=== PATIENT | male | born 1960 | race Caucasian/White ===

== ENCOUNTER → 2017-06-08 | Outpatient (CLI) | payer OTHER ==
[~2017-06-08] MED LIST: /ESOM40CA OR; ASPI81TA45 OR
[2017-06-08 10:11] LABS: ALBUMIN 3.9 GM/DL (3.2-5.2); ALKALINE PHOSPHATASE 53 U/L (45-117); ALT/SGPT 42 U/L (12-78); ANION GAP 7 MEQ/L (8-16); AST/SGOT 14 U/L (15-37); BILIRUBIN,TOTAL 0.5 MG/DL (0.2-1.0); BLOOD UREA NITROGEN 22 MG/DL (7-18); CALCIUM LEVEL 8.9 MG/DL (8.5-10.1); CARBON DIOXIDE LEVEL 26 MEQ/L (21-32); CHLORIDE LEVEL 109 MEQ/L (98-107); CHOLESTEROL LEVEL 216 MG/DL (<200); CREATININE FOR GFR 0.94 MG/DL (0.70-1.30); GLOMERULAR FILTRATION RATE > 60.0 (>56); GLUCOSE, FASTING 131 MG/DL (70-105); POTASSIUM SERUM 4.4 MEQ/L (3.5-5.1); SODIUM LEVEL 142 MEQ/L (136-145); TOTAL PROTEIN 6.9 GM/DL (6.4-8.2); TRIGLYCERIDES LEVEL 144 MG/DL (<150)
== END ==
LOC: M LAB 08:26
PROVIDERS: ATTEND Emergency Medicine
DX: I10 Essential (primary) hypertension (principal); E78.2 Mixed hyperlipidemia; R73.01 Impaired fasting glucose

== ENCOUNTER → 2018-01-18 | Outpatient (CLI) | payer OTHER ==
[2018-01-18 13:14] LABS: ALBUMIN 3.9 GM/DL (3.2-5.2); ALKALINE PHOSPHATASE 55 U/L (45-117); ALT/SGPT 47 U/L (12-78); ANION GAP 7 MEQ/L (8-16); AST/SGOT 17 U/L (7-37); BILIRUBIN,TOTAL 0.5 MG/DL (0.2-1.0); BLOOD UREA NITROGEN 20 MG/DL (7-18); CARBON DIOXIDE LEVEL 27 MEQ/L (21-32); CHLORIDE LEVEL 108 MEQ/L (98-107); CHOLESTEROL LEVEL 243 MG/DL (<200); CHOLESTEROL RISK RATIO 4.764 (<5); CREATININE FOR GFR 0.91 MG/DL (0.70-1.30); GLOMERULAR FILTRATION RATE > 60.0 (>56); GLUCOSE, FASTING 131 MG/DL (70-100); HDL CHOLESTEROL 51 MG/DL (>40); LDL CHOLESTEROL 166.8 MG/DL (<100); NON-HDL-C 192 MG/DL; POTASSIUM SERUM 4.4 MEQ/L (3.5-5.1); SODIUM LEVEL 142 MEQ/L (136-145); TOTAL PROTEIN 6.9 GM/DL (6.4-8.2); TRIGLYCERIDES LEVEL 126 MG/DL (<150)
[2018-01-18 13:26] LABS: ESTIMATED AVERAGE GLUCOSE 154 MG/DL (60-110)
== END ==
LOC: M ADAMS 08:51
DX: I10 Essential (primary) hypertension (principal); E78.2 Mixed hyperlipidemia; R73.01 Impaired fasting glucose
CPT/HCPCS: 80053

== ENCOUNTER → 2018-06-09 | Outpatient (CLI) | payer OTHER ==
[2018-06-09 12:37] LABS: ALBUMIN 3.7 GM/DL (3.2-5.2); ALBUMIN/GLOBULIN RATIO 1.16 (1.00-1.93); ALKALINE PHOSPHATASE 57 U/L (45-117); ALT/SGPT 43 U/L (12-78); ANION GAP 6 MEQ/L (8-16); AST/SGOT 20 U/L (7-37); BILIRUBIN,TOTAL 0.7 MG/DL (0.2-1.0); BLOOD UREA NITROGEN 22 MG/DL (7-18); CARBON DIOXIDE LEVEL 29 MEQ/L (21-32); CHLORIDE LEVEL 107 MEQ/L (98-107); CHOLESTEROL LEVEL 219 MG/DL (<200); CHOLESTEROL RISK RATIO 4.211 (<5); CREATININE FOR GFR 0.97 MG/DL (0.70-1.30); GLOMERULAR FILTRATION RATE > 60.0 (>56); GLUCOSE, FASTING 130 MG/DL (70-100); HDL CHOLESTEROL 52 MG/DL (>40); LDL CHOLESTEROL 138.2 MG/DL (<100); NON-HDL-C 167 MG/DL; POTASSIUM SERUM 4.5 MEQ/L (3.5-5.1); SODIUM LEVEL 142 MEQ/L (136-145); TOTAL PROTEIN 6.9 GM/DL (6.4-8.2); TRIGLYCERIDES LEVEL 144 MG/DL (<150)
[2018-06-09 12:42] LABS: ESTIMATED AVERAGE GLUCOSE 128 MG/DL (60-110); HEMOGLOBIN A1c 6.1 %
== END ==
LOC: M ADAMS 08:16
DX: I10 Essential (primary) hypertension (principal); E78.2 Mixed hyperlipidemia; R73.01 Impaired fasting glucose
CPT/HCPCS: 80053

== ENCOUNTER → 2018-12-21 | Outpatient (CLI) | payer OTHER ==
[2018-12-21 13:00] LABS: ALT/SGPT 43 U/L (12-78); BILIRUBIN,TOTAL 0.8 MG/DL (0.2-1.0); BLOOD UREA NITROGEN 18 MG/DL (7-18); CALCIUM LEVEL 8.8 MG/DL (8.8-10.2); CARBON DIOXIDE LEVEL 26 MEQ/L (21-32); CHLORIDE LEVEL 106 MEQ/L (98-107); CHOLESTEROL LEVEL 131 MG/DL (<200); CHOLESTEROL RISK RATIO 2.977 (<5); CREATININE FOR GFR 0.88 MG/DL (0.70-1.30); GLOMERULAR FILTRATION RATE > 60.0 (>49); GLUCOSE, FASTING 124 MG/DL (70-100); HDL CHOLESTEROL 44 MG/DL (>40); LDL CHOLESTEROL 70 MG/DL (<100); NON-HDL-C 87 MG/DL; POTASSIUM SERUM 4.3 MEQ/L (3.5-5.1); SODIUM LEVEL 139 MEQ/L (136-145); TOTAL PROTEIN 6.7 GM/DL (6.4-8.2); TRIGLYCERIDES LEVEL 84 MG/DL (<150)
[2018-12-21 13:55] LABS: HEMOGLOBIN A1c 7.1 %
== END ==
LOC: M LABDRWAD 09:10
PROVIDERS: ATTEND Physician Assistant
DX: E78.2 Mixed hyperlipidemia (principal); R73.01 Impaired fasting glucose; I10 Essential (primary) hypertension

== ENCOUNTER 2019-04-09 08:21 | Inpatient (IN) | payer OTHER ==
[~2019-04-09] VITALS: Ht 172.7 cm; Wt 112.0 kg
[~2019-04-09 08:21] MED LIST changes: -/ESOM40CA OR; +NEXI1CAP3 OR
[2019-04-09] MEDS ORDERED: ESOM40CA35 PO (08:33)
[2019-04-09] MEDS ORDERED: ATOR40TA75 PO (08:33)
[2019-04-09] MEDS ORDERED: AMLO10TA5 PO (08:33)
[2019-04-09] MEDS ORDERED: NS 1,000 ML IV SCH (09:00)
[2019-04-09 09:22] LABS: BASO % 0.5 % (0.0-1.0); EOS # 0.1 10^3/uL (0.0-0.50); EOS % 1.5 % (0.0-3.0); HEMATOCRIT 48.6 % (42.0-52.0); HEMOGLOBIN 16.5 g/dl (13.5-17.5); LYMPH # 2.1 10^3/uL (1.5-4.5); LYMPH % 23.4 % (24.0-44.0); MEAN CORPUSCULAR HEMOGLOBIN 30.3 pg (27.0-33.0); MEAN CORPUSCULAR VOLUME 89.3 fl (80.0-96.0); MONO # 0.6 10^3/uL (0.0-0.8); MONO % 7.1 % (0.0-5.0); NEUTROPHILS % 67.4 % (36.0-66.0); PLATELET COUNT, AUTOMATED 216 10^3/uL (150-450); RED BLOOD COUNT 5.44 10^6/uL (4.30-6.10); WHITE BLOOD COUNT 8.8 10^3/uL (4.0-10.0)
[2019-04-09 09:37] LABS: INR 0.9; PROTHROMBIN TIME 12.2 SECONDS (12.1-14.4)
[2019-04-09 09:38] LABS: PARTIAL THROMBOPLASTIN TIME 31.7 SECONDS (25.4-37.6)
[2019-04-09 09:57] LABS: ALBUMIN 3.5 GM/DL (3.2-5.2); ALT/SGPT 41 U/L (12-78); BILIRUBIN,DIRECT < 0.1 MG/DL (0.0-0.2); BILIRUBIN,TOTAL 0.4 MG/DL (0.2-1.0); BLOOD UREA NITROGEN 17 MG/DL (7-18); CALCIUM LEVEL 8.7 MG/DL (8.8-10.2); CARBON DIOXIDE LEVEL 27 MEQ/L (21-32); CHLORIDE LEVEL 107 MEQ/L (98-107); CREATININE FOR GFR 0.91 MG/DL (0.70-1.30); GLOMERULAR FILTRATION RATE > 60.0 (>49); GLUCOSE, FASTING 156 MG/DL (70-100); LIPASE 143 U/L (73-393); POTASSIUM SERUM 5.1 MEQ/L (3.5-5.1); SODIUM LEVEL 140 MEQ/L (136-145); TOTAL PROTEIN 6.9 GM/DL (6.4-8.2)
[2019-04-09] MEDS: GASTROGRAFIN SOLUTION 30ML PO SCH ×2 (11:18→11:47)
[2019-04-09] MEDS ORDERED: ISOVUE-370 76% 100ML VIAL (Q9967) As Ordered ONE (12:48)
[2019-04-09] MEDS ORDERED: ECOT81TA5 PO (13:49)
[2019-04-09] MEDS ORDERED: CIPROFLOXACIN 400 MG in APPROPRIATE DILUENT 1 EA IV ONE (14:00)
[2019-04-09] MEDS ORDERED: metroNIDAZOLE 500 MG in APPROPRIATE DILUENT 1 EA IV ONE (14:00)
--- NOTE | 2019-04-09 14:18 | REP ---
CT ABDOMEN/PELVIS WITH ORAL AND IV CONTRAST: Visualized lung bases demonstrate no infiltrate. The liver demonstrates diffuse fatty infiltration. Spleen, adrenals, pancreas, and kidneys are unremarkable. There is atherosclerotic calcification of the abdominal aorta without aneurysm. There is no adenopathy. No free fluid or fluid collection is seen. There is sigmoid diverticulosis with segmental thickening of the sigmoid colon and the surrounding streaky inflammation in the fat. There are also tiny foci of air adjacent to this portion of the sigmoid colon. Findings are consistent with sigmoid diverticulitis. Urinary bladder is mildly distended and grossly unremarkable. There are degenerative changes of the spine. IMPRESSION: Findings compatible with sigmoid diverticulitis with segmental thickening of the sigmoid colon, with multiple diverticula in the sigmoid. Streaky inflammatory change and tiny foci of free air seen in the pericolonic fat. Dr. Taylor was informed of these findings at the time of the exam, 1:20 p.m., 04/09/2019. Electronically Signed by Chace Cortez MD 04/10/2019 12:36 P
[2019-04-09] MEDS ORDERED: ACETAMINOPHEN TAB 650MG DOSE (2X325MG) PO PRN (15:15)
[2019-04-09] MEDS: NS 1,000 ML IV SCH (15:44)
[2019-04-09] MEDS: PANTOPRAZOLE 40MG TAB (PROTONIX) PO SCH (15:51)
[2019-04-09] MEDS: amLODIPine 10 MG TAB PO SCH (15:51)
--- NOTE | 2019-04-09 15:58 | HPEPDOC ---
General Date of Admission Apr 09, 2019 at 14:48 Date of Service: Apr 09, 2019 Attending Physician: ISA SALDIVAR MD Chief Complaint The patient is a 58-year-old male admitted with a reason for visit of D iverticulitis. Source: Patient, Family, Old records Exam Limitations: No limitations Timing/Duration: 24 hours History of Present Illness Mr. Madsen is a 58-year-old male who presents to [facility]'s Emergency Department with lower abdominal pain. He is accompanied by his , Shari. Patient states he woke up at 3AM this morning with lower abdominal pain. He went to use the facilities and noticed bright red blood in the toilet bowl. There were no clots. It was not black and tarry. He states the abdominal pain is crampy-type pain. His bowel movements have been soft and mucoid. He admits to crampy-type abdominal pain which is associated with the urge to have a bowel movement that was happening every 10-15 minutes. He is not bleeding from anywhere else, including coughing or vomiting up blood, bleeding from his nose, noticing blood in his urine, or easy bruising. He recalls a similar incident about 2 months ago. The symptoms were similar except they were not so severe. He was treated out-patient and his thinks he was Ciprofloxacin. His last colonoscopy was about 10 years ago and patient states that there were only diverticula noted. He is due to for a follow-up colonoscopy. Besides the review of systems listed above, the patient has no other complaints. Emergency Department evaluation reveals somewhat elevated blood pressure; however, he has not taken his blood pressure medication. Labs are unremarkable except for a blood glucose level of 156. Abdomen and pelvis CT is consistent with diverticulitis. Hospitalist service was consulted and patient was admitted under observation for further evaluation and treatment. Home Medications Scheduled Amlodipine Besylate (Amlodipine Besylate) 10 Mg Tablet, 10 MG PO DAILY, (Reported) Aspirin (Ecotrin) 81 Mg Tablet.dr, 81 MG PO DAILY, (Reported) Atorvastatin Calcium (Atorvastatin Calcium) 40 Mg Tablet, 40 MG PO DAILY, (Reported) Esomeprazole Magnesium (Esomeprazole Magnesium Dr) 40 Mg Capsule.dr, 40 MG PO DAILY, (Reported) Allergies Coded Allergies: No Known Allergies (Unverified , 5/7/15) Past Medical History Medical History 1. HTN 2. ARLEEN 3. GERD 4. DLP 5. CLBP 6. ? DM Surgical History 1. Nasopharyngeal biopsy 2. EGD 3. Colonoscopy 4. Right iliac artery endarterectomy Family History Father: , 83, CABG x3, stroke, diverticulitis Mother: , 83, hip fracture, C. diff Siblings - Sister: x1, , 27, MCV - Sister: x1, alive, 58, lupus - Sister: x1, alive, 68, diverticulitis - Brother: x1, alive, 63 Social History * Smoker: current smoker (1/2 PPD, started smoking at 3 years old) Alcohol: occationally (beer, liquor) Drugs: denies Patient lives independently with his , Shari. They have been for 7 years, but have been together for 42 years. They have one adult son who is 38 years old and healthy. Patient mows lawns, has worked for the labor union, and has worked in maintenance at the [employer]. A-FIB/CHADSVASC A-FIB History Current/History of A-Fib/PAF?: No Review of Systems Constitutional: Denies: Chills, Fever, Night Sweats, Weakness, Weight Loss Eyes: Denies: Vision change, Conjunctivae inflammation, Eyelid inflammation ENT: Denies: Head Aches, Dysphagia, Sinus Congestion, Post Nasal Drip, Sore Throat, Epistaxis Skin: Denies: Rash, Lesions Pulmonary: Denies: Dyspnea, Cough, Pleuritic Chest Pain Cardiovascular: Denies: Chest Pain, Palpitations, Orthopnea, Paroxysmal Noc. Dyspnea, Edema, Lt Headedness Gastrointestinal: Reports: Abdominal Pain (lower abdominal pain), Hematochezia, Other Symptoms (mucoid bowel movements); Denies: Nausea, Vomiting, Diarrhea, Constipation, Melena Genitourinary: Reports: Frequency; Denies: Dysuria, Incontinence, Hematuria, Retention Hematologic: Denies: Bruising, Bleeding Excessively Endocrine: Denies: Polydipsia, Polyphagia Musculoskeletal: Reports: Back Pain (chronic); Denies: Neck Pain, Joint Pain, Muscle Pain Neurological: Denies: Weakness, Numbness Physical Examination General Exam: Positive: Alert, Cooperative, No Acute Distress Eye Exam: Positive: PERRLA, Conjunctiva & lids normal, EOMI; Negative: Sclera icteric, Ptosis ENT Exam: Positive: Atraumatic, Mucous membr. moist/pink, Pharynx Normal, Tongue Midline, Nares Patent; Negative: Pharyngeal Edema Neck Exam: Positive: Supple, +2 carotid pulse wo bruit; Negative: JVD, thyromegaly, Lymphadenopathy Chest Exam: Positive: Clear to auscultation, Normal air movement; Negative: Rales, Rhonchi, Wheezing, Diminished Heart Exam: Positive: Rate Normal, Bradycardic, Regular Rhythm, Normal S1, Normal S2; Negative: Gallops, Murmurs, Rubs Telemetry: Positive: Bradycardia Abdomen Exam: Positive: BS Hypoactive, Soft, Tenderness (lower quadrants); Negative: Hepatospenomegaly, Mass, Hernia Extremity Exam: Negative: Clubbing, Cyanosis, Edema, Normal pulses (bradycardia), Tenderness, Swelling Skin Exam: Positive: Other skin issue (chronic venous stasis changes); Negative: Rash, Lesion Neuro Exam: Positive: Normal Speech, Cranial Nerves 3-12 NL Psych Exam: Positive: Oriented x 3 Other physical findings 1. CT abdomen and pelvis with IV and oral contrast - Findings compatible with sigmoid diverticulitis with segmental thickening of the sigmoid colon, with multiple diverticula in the sigmoid. Streaky inflammatory change and tiny foci of free air seen in the pericolonic fat. Vital Signs Vital Signs Date Time Temp Pulse Resp B/P (MAP) Pulse Ox O2 Delivery O2 Flow Rate FiO2 04/09/19 15:01 158/109 (125) 04/09/19 15:00 54 04/09/19 14:45 18 96 Room Air 04/09/19 08:22 97.2 Height (in): 68 Weight (kg): 113.64 BMI (kg): 38.1 Laboratory Data Labs 24H Laboratory Tests 2 04/09/19 09:11: Immature Granulocyte % (Auto) 0.1, White Blood Count 8.8, Red Blood Count 5.44, Hemoglobin 16.5, Hematocrit 48.6, Mean Corpuscular Volume 89.3, Mean Corpuscular Hemoglobin 30.3, Mean Corpuscular Hemoglobin Concent 34.0, Red Cell Distribution Width 12.6, Platelet Count 216, Neutrophils (%) (Auto) 67.4H, Lymphocytes (%) (Auto) 23.4L, Monocytes (%) (Auto) 7.1H, Eosinophils (%) (Auto) 1.5, Basophils (%) (Auto) 0.5, Neutrophils # (Auto) 6.0, Lymphocytes # (Auto) 2.1, Monocytes # (Auto) 0.6, Eosinophils # (Auto) 0.1, Basophils # (Auto) 0.0, Nucleated Red Blood Cells % (auto) 0.0, Prothrombin Time 12.2, Prothromb Time International Ratio 0.90, Activated Partial Thromboplast Time 31.7, Urine Color YELLOW, Urine Appearance CLEAR, Urine pH 6.0, Urine Specific [place] 1.021, Urine Protein NEGATIVE, Urine Glucose (UA) 1+H, Urine Ketones NEGATIVE, Urine Blood NEGATIVE, Urine Nitrite NEGATIVE, Urine Bilirubin NEGATIVE, Urine Urobilinogen 0.2, Urine Leukocyte Esterase NEGATIVE, Urine WBC (Auto) 0, Urine RBC (Auto) 4H, Urine Hyaline Casts (Auto) 0, Urine Bacteria (Auto) NEGATIVE, Urine Squamous Epithelial Cells 0, Urine Mucus (Auto) SMALL, Urine Sperm (Auto) , Anion Gap 6L, Glomerular Filtration Rate > 60.0, Calcium Level 8.7L, Aspartate Amino Transf (AST/SGOT) 29, Alanine Aminotransferase (ALT/SGPT) 41, Alkaline Phosphatase 69, Total Bilirubin 0.4, Direct Bilirubin < 0.1, Total Protein 6.9, Albumin 3.5, Albumin/Globulin Ratio 1.03, Lipase 143 CBC/BMP Laboratory Tests 04/09/19 09:11 Red Blood Count 5.44, Mean Corpuscular Volume 89.3, Mean Corpuscular Hemoglobin 30.3, Mean Corpuscular Hemoglobin Concent 34.0, Red Cell Distribution Width 12.6, Neutrophils (%) (Auto) 67.4 H, Lymphocytes (%) (Auto) 23.4 L, Monocytes (%) (Auto) 7.1 H, Eosinophils (%) (Auto) 1.5, Basophils (%) (Auto) 0.5, Neutrophils # (Auto) 6.0, Lymphocytes # (Auto) 2.1, Monocytes # (Auto) 0.6, Eosinophils # (Auto) 0.1, Basophils # (Auto) 0.0 Plan / VTE VTE Prophylaxis Ordered?: Yes (TEDs) Plan Plan 1. Lower abdominal pain 2/[address] abdomen and pelvis with IV and oral contrast: Findings compatible with sigmoid diverticulitis with segmental thickening of the sigmoid colon, with multiple diverticula in the sigmoid. Streaky inflammatory change and tiny foci of free air seen in the pericolonic fat NPO, NS @ 125 mLs/hr Zosyn 3.375mg IV Q6H Procalcitonin, lactic acid ordered Tylenol 650mg PO Q4HP for pain control 2. Bright red blood per rectum 2/2 #1 vs. hemorrhoids No pain with defecation, so less likely fissure Holding ASA Non-pharmacological DVT prophylaxis, TEDs and ambulation Monitor H&H Q6H for 24 hours, currently stable 3. HTN Continue with Amlodipine 4. Presumed DM Hgb A1c 7.1% Started SSI Q6H, FSBS Q6H, hypoglycemic protocol NPO, NS @ 125 mLs/hr 5. ARLEEN May use own CPAP 6. Tobacco dependence Smoking cessation counseling ordered Patient declined nicotine replacement Disposition Admit: Med/Surg Anticipated hospitalization: Observation IVF: Initiate (NS @ 125 mLs/hr) Diet: Make NPO Activity: Continue Current (activity as tolerated) Therapy: PT Medications: Start Antibiotics (Zosyn 3.375gm IV Q6H) Diagnostics: Check Labs, Repeat Labs in AM Anticipated Discharge: Home Attending Note I have personally interviewed and examined the patient. I have discussed the history, physical examination and the plan of care with the resident. I agree with the resident's documentation above. CRYSTAL HARRIS DO Apr 09, 2019 15:58 ISA SALDIVAR MD Apr 10, 2019 00:00
[2019-04-09] MEDS ORDERED: DEXTROSE 50% 50 ML SYRINGE IV PRN (16:00)
[2019-04-09] MEDS ORDERED: GLUCOSE 4 GM CHEW TABLET PO PRN (16:00)
[2019-04-09] MEDS ORDERED: GLUCAGON FOR INJ 1 MG VIAL (J1610) SC PRN (16:00)
[2019-04-09 17:45] VITALS: BP 145/76
[2019-04-09] MEDS: HumaLOG INSULIN (NovoLOG) PER UNIT SC SCH (18:00)
[2019-04-09 18:17] LABS: HEMATOCRIT 46.9 % (42.0-52.0); HEMOGLOBIN 15.6 g/dl (13.5-17.5)
[2019-04-09 22:00] VITALS: BP 134/63
[2019-04-09] MEDS: PIPERACILLIN/TAZOBACTAM SOD 3.375 GM in D5W MINI-BAG PLUS 50 ML IV SCH (23:56)
[2019-04-10 00:14] LABS: HEMOGLOBIN 15.1 g/dl (13.5-17.5)
[2019-04-10] MEDS: NS 1,000 ML IV SCH ×3 (04:18→23:14)
[2019-04-10] MEDS: HumaLOG INSULIN (NovoLOG) PER UNIT SC SCH ×4 (05:46→17:21)
[2019-04-10] MEDS: PIPERACILLIN/TAZOBACTAM SOD 3.375 GM in D5W MINI-BAG PLUS 50 ML IV SCH ×3 (05:46→18:16)
[2019-04-10 06:00] VITALS: BP 134/63
[2019-04-10 07:08] LABS: HEMOGLOBIN 14.9 g/dl (13.5-17.5); MEAN CORPUSCULAR HEMOGLOBIN 29.7 pg (27.0-33.0); MEAN CORPUSCULAR HGB CONC 33.9 g/dl (32.0-36.5); MEAN CORPUSCULAR VOLUME 87.6 fl (80.0-96.0); PLATELET COUNT, AUTOMATED 199 10^3/uL (150-450); RED BLOOD COUNT 5.02 10^6/uL (4.30-6.10); WHITE BLOOD COUNT 5.9 10^3/uL (4.0-10.0)
[2019-04-10 07:38] LABS: BLOOD UREA NITROGEN 12 MG/DL (7-18); CALCIUM LEVEL 8.2 MG/DL (8.8-10.2); CARBON DIOXIDE LEVEL 24 MEQ/L (21-32); CHLORIDE LEVEL 107 MEQ/L (98-107); CREATININE FOR GFR 0.98 MG/DL (0.70-1.30); GLOMERULAR FILTRATION RATE > 60.0 (>49); GLUCOSE, FASTING 156 MG/DL (70-100); SODIUM LEVEL 138 MEQ/L (136-145)
[2019-04-10] MEDS ORDERED: PANTOPRAZOLE 40MG TAB (PROTONIX) PO SCH (09:00)
[2019-04-10 09:36] VITALS: BP 133/70
[2019-04-10] MEDS: amLODIPine 10 MG TAB PO SCH (10:13)
[2019-04-10] MEDS: PANTOPRAZOLE 40MG TAB (PROTONIX) PO SCH (10:13)
--- NOTE | 2019-04-10 10:21 | IPNPDOC ---
Date Seen The patient was seen on 04/10/19. Progress Note SUBJECTIVE: No new issues overnight. He Denies: Chills, Fever, Night Sweats, Weakness, Weight Loss,Vision change, Conjunctivae inflammation, Eyelid inflammationHead Aches, Dysphagia, Sinus Congestion, Post Nasal Drip, Sore Throat, EpistaxisRash, Lesions Dyspnea, Cough, Pleuritic Chest PainChest Pain, Palpitations, Orthopnea, Paroxysmal Noc. Dyspnea, Edema, Lt HeadednessReports: Abdominal Pain (lower abdominal pain), Hematochezia, Other(mucoid bowel movements Nausea, Vomiting, Diarrhea, Constipation, Melena Reports: Frequency; Denies: Dysuria, Incontinence, Hematuria, RetentionDenies: Bruising, Bleeding ExcessivelyPolydipsia, Polyphagia Reports: Back Pain (chronic); Denies: Neck Pain, Joint Pain, Muscle Pain. Pt had a previous EGD/colonoscopy by Dr. Chavez with h/o polyps and GERD. Ct abd yesterday showed: ?free air. abd xray pending this morning. Physical Examination VITALS: PLS SEE BELOW General Exam: Positive: Alert, Cooperative, No Acute Distress Eye Exam: Positive: PERRLA, Conjunctiva & lids normal, EOMI; Negative: Sclera icteric, Ptosis ENT Exam: Positive: Atraumatic, Mucous membr. moist/pink, Pharynx Normal, Tongue Midline, Nares Patent; Negative: Pharyngeal Edema Neck Exam: Positive: Supple, +2 carotid pulse wo bruit; Negative: JVD, thyromegaly, Lymphadenopathy Chest Exam: Positive: Clear to auscultation, Normal air movement; Negative: Rales, Rhonchi, Wheezing, Diminished Heart Exam: Positive: Rate Normal, Bradycardic, Regular Rhythm, Normal S1, Normal S2; Negative: Gallops, Murmurs, Rubs Telemetry: Positive: Bradycardia Abdomen Exam: Positive: BS Hypoactive, Soft, Tenderness (lower quadrants); Negative: Hepatospenomegaly, Mass, Hernia Extremity Exam: Negative: Clubbing, Cyanosis, Edema, Normal pulses (bradycardia), Tenderness, Swelling Skin Exam: Positive: Other skin issue (chronic venous stasis changes); Negative: Rash, Lesion Neuro Exam: Positive: Normal Speech, Cranial Nerves 3-12 NL Psych Exam: Positive: Oriented x 3 LABORATORY DATA, IMAGING STUDIES: REVIEWED, PLS SEE BELOW 1. CT abdomen and pelvis with IV and oral contrast - Findings compatible with sigmoid diverticulitis with segmental thickening of the sigmoid colon, with multiple diverticula in the sigmoid. Streaky inflammatory change and tiny foci of free air seen in the pericolonic fat. VTE Prophylaxis Ordered?: Yes (TEDs) ASSESSMENT AND PLNA: Mr. Madsen is a 58-year-old male who presents to [facility]'s Emergency Department with lower abdominal pain. He is accompanied by his , Shari.Patient states he woke up at 3AM this morning with lower abdominal pain. He went to use the facilities and noticed bright red blood in the toilet bowl. There were no clots. It was not black and tarry. He states the abdominal pain is crampy-type pain. His bowel movements have been soft and mucoid. He admits to crampy-type abdominal pain which is associated with the urge to have a bowel movement that was happening every 10-15 minutes. He is not bleeding from anywhere else, including coughing or vomiting up blood, bleeding from his nose, noticing blood in his urine, or easy bruising. He recalls a similar incident about 2 months ago. The symptoms were similar except they were not so severe. He was treated out-patient and his thinks he was Ciprofloxacin. His last colonoscopy was about 10 years ago and patient states that there were only diverticula noted. He is due to for a follow-up colonoscopy. Besides the review of systems listed above, the patient has no other complaints.Emergency Department evaluation reveals somewhat elevated blood pressure; however, he has not taken his blood pressure medication. Labs are unremarkable except for a blood glucose level of 156. Abdomen and pelvis CT is consistent with diverticulitis.Hospitalist service was consulted and patient was admitted under observation for further evaluation and treatment. 1. Acute diverticulitis CT abdomen and pelvis with IV and oral contrast: Findings compatible with sigmoid diverticulitis with segmental thickening of the sigmoid colon, with multiple diverticula in the sigmoid. Streaky inflammatory change and tiny foci of free air seen in the pericolonic fat NPO, NS @ 125 mLs/hr Zosyn 3.375mg IV Q6H Procalcitonin, lactic acid ordered Tylenol 650mg PO Q4HP for pain control 2. Bright red blood per rectum 2/2 #1 vs. hemorrhoids No pain with defecation, so less likely fissure Holding ASA Non-pharmacological DVT prophylaxis, TEDs and ambulation Monitor H&H Q6H for 24 hours, currently stable 3. HTN Continue with Amlodipine 4. Presumed DM Hgb A1c 7.1% Started SSI Q6H, FSBS Q6H, hypoglycemic protocol NPO, NS @ 125 mLs/hr 5. ARLEEN May use own CPAP 6. Tobacco dependence Smoking cessation counseling ordered Patient declined nicotine replacement 7. Tiny Amount of Free air in the lanie-colonic area check repeat KUB Xray. NPO . IVFLUIDS Surgical consult if increased and if clinically worsens. A-FIB/CHADSVASC A-FIB History Current/History of A-Fib/PAF?: No VS, I&O, 24H, Fishbone Vital Signs/I&O Vital Signs Date Time Temp Pulse Resp B/P (MAP) Pulse Ox O2 Delivery O2 Flow Rate FiO2 04/10/19 09:36 56 133/70 (91) 04/10/19 06:00 96.9 18 93 04/09/19 17:38 Room Air I&O- Last 24 Hours up to 6 AM 04/10/19 06:00 Intake Total 3000 ml Output Total 1000 ml Balance 2000 ml Laboratory Data 24H LABS Laboratory Tests 2 04/09/19 17:54: Lactic Acid Level 1.2 04/09/19 18:26: Bedside Glucose (Misc Panel) 101 04/09/19 20:55: Bedside Glucose (Misc Panel) 103 04/09/19 23:57: Bedside Glucose (Misc Panel) 149H 04/10/19 05:44: Bedside Glucose (Misc Panel) 148H 04/10/19 06:56: Nucleated Red Blood Cells % (auto) 0.0, Anion Gap 7L, Glomerular Filtration Rate > 60.0, Blood Urea Nitrogen 12, Creatinine 0.98, Sodium Level 138, Potassium Level 4.0#, Chloride Level 107, Carbon Dioxide Level 24, Calcium Level 8.2L CBC/BMP Laboratory Tests 04/09/19 17:54 04/09/19 23:59 04/10/19 06:56 Red Blood Count 5.02, Mean Corpuscular Volume 87.6, Mean Corpuscular Hemoglobin 29.7, Mean Corpuscular Hemoglobin Concent 33.9, Red Cell Distribution Width 12.5, Calcium Level 8.2 L CAMILLE VASQUEZ MD Apr 10, 2019 10:12
[2019-04-10] MEDS: PANTOPRAZOLE 40MG INJ (PROTONIX) (C9113) IV SCH (12:29)
[2019-04-10 14:00] VITALS: BP 147/75
--- NOTE | 2019-04-10 14:22 | REP ---
KUB ABDOMEN AND PELVIS: Two KUB films of the abdomen and pelvis performed. There is a nonobstructive bowel gas pattern. Oral contrast from CT performed yesterday is seen in the transverse and left colon. No gross free air is seen, but evaluation for free air is limited on supine imaging. Please note that the tiny foci of extraluminal air seen on yesterday's CT scan was localized to the pericolonic fat of the sigmoid colon, and was only a very small amount. Electronically Signed by Chace Cortez MD 04/10/2019 08:12 P
[2019-04-11] MEDS: PIPERACILLIN/TAZOBACTAM SOD 3.375 GM in D5W MINI-BAG PLUS 50 ML IV SCH ×3 (00:21→13:07)
[2019-04-11] MEDS: NS 1,000 ML IV SCH ×2 (00:25→10:52)
[2019-04-11 06:00] VITALS: BP 130/76
[2019-04-11] MEDS: HumaLOG INSULIN (NovoLOG) PER UNIT SC SCH ×3 (06:00→12:00)
[2019-04-11 06:06] LABS: HEMATOCRIT 45.9 % (42.0-52.0); HEMOGLOBIN 15.6 g/dl (13.5-17.5); MEAN CORPUSCULAR HEMOGLOBIN 30.3 pg (27.0-33.0); MEAN CORPUSCULAR VOLUME 89.1 fl (80.0-96.0); PLATELET COUNT, AUTOMATED 193 10^3/uL (150-450); RED BLOOD COUNT 5.15 10^6/uL (4.30-6.10); WHITE BLOOD COUNT 5.6 10^3/uL (4.0-10.0)
[2019-04-11 06:23] LABS: BLOOD UREA NITROGEN 11 MG/DL (7-18); CALCIUM LEVEL 8.8 MG/DL (8.8-10.2); CARBON DIOXIDE LEVEL 25 MEQ/L (21-32); CHLORIDE LEVEL 107 MEQ/L (98-107); GLOMERULAR FILTRATION RATE > 60.0 (>49); GLUCOSE, FASTING 123 MG/DL (70-100); SODIUM LEVEL 139 MEQ/L (136-145)
[2019-04-11 08:54] VITALS: BP 137/71
[2019-04-11] MEDS: PANTOPRAZOLE 40MG INJ (PROTONIX) (C9113) IV SCH (08:56)
[2019-04-11 08:57] VITALS: BP 137/71
[2019-04-11] MEDS: amLODIPine 10 MG TAB PO SCH (08:57)
[2019-04-11] MEDS ORDERED: CIPR250T3 PO (10:47)
[2019-04-11] MEDS ORDERED: FLAG500T PO (10:49)
--- NOTE | 2019-04-11 12:41 | DS.PDOC ---
Discharge Summary General Date of Admission Apr 10, 2019 at 10:35 Date of Discharge April 11, 2019 Discharge Summary DISCHARGE DIAGNOSES: Acute Diverticulitis Acute Lower GI Bleed due to Hemorrhoids Hemorrhoids Acute blood loss HTN DM 2, new onset a1C 7.1% 12/2018 Obesity BMI 37.5 ARLEEN on home CPAP Metabolic Syndrome DISCHARGE MEDICATIONS: PLS SEE BELOW DISCHARGE INSTRUCTIONS: A1C 7.1% : New onset DM, needs to be confirmed by PCP as outpt with repeat A1c or fasting glucose. needs oupt referral to ophthalmology for retinal exam, urine microalbumin, and lipid profile. PCP to start on oral hypoglycemic, radiology physician consult, diet and aerobic exercise. Acute Diverticulitis; outpt enid cheung. HISTORY OF PRESENTING ILLNESS: Mr. Madsen is a 58-year-old male who presents to [facility]'s Emergency Department with lower abdominal pain. He is accompanied by his , Shari.Patient states he woke up at 3AM this morning with lower abdominal pain. He went to use the facilities and noticed bright red blood in the toilet bowl. There were no clots. It was not black and tarry. He states the abdominal pain is crampy-type pain. His bowel movements have been soft and mucoid. He admits to crampy-type abdominal pain which is associated with the urge to have a bowel movement that was happening every 10-15 minutes. He is not bleeding from anywhere else, including coughing or vomiting up blood, bleeding from his nose, noticing blood in his urine, or easy bruising. He recalls a similar incident about 2 months ago. The symptoms were similar except they were not so severe. He was treated out-patient and his thinks he was Ciprofloxacin. His last colonoscopy was about 10 years ago and patient states that there were only diverticula noted. He is due to for a follow-up colonoscopy. Besides the review of systems listed above, the patient has no other complaints.Emergency Department evaluation reveals somewhat elevated blood pressure; however, he has not taken his blood pressure medication. Labs are unremarkable except for a blood glucose level of 156. Abdomen and pelvis CT is consistent with diverticulitis.Hospitalist service was consulted and patient was admitted under observation for further evaluation and treatment. HOSPITAL COURSE: Acute diverticulitis CT abdomen and pelvis with IV and oral contrast: Findings compatible with sigmoid diverticulitis with segmental thickening of the sigmoid colon, with multiple diverticula in the sigmoid. Streaky inflammatory change and tiny foci of free air seen in the pericolonic fat NPO, NS @ 125 mLs/hr Zosyn 3.375mg IV Q6H Procalcitonin, lactic acid ordered Tylenol 650mg PO Q4HP for pain control Bright red blood per rectum 2/2 #1 vs. hemorrhoids No pain with defecation, so less likely fissure Holding ASA Non-pharmacological DVT prophylaxis, TEDs and ambulation Monitor H&H Q6H for 24 hours, currently stable HTN Continue with Amlodipine DM 2 Hgb A1c 7.1% Started SSI Q6H, FSBS Q6H, hypoglycemic protocol s/p NPO, NS @ 125 mLs/hr. Will need outpt PCP to repeat A1c or Fasting glucose, start on oral hypoglycemic agent, and eye testing. ARLEEN May use own CPAP Tobacco dependence Smoking cessation counseling ordered Patient declined nicotine replacement Tiny Amount of Free air in the lanie-colonic area REVIEWED KUB Xray. DISCHARGE Physical Examination VITALS: PLS SEE BELOW General Exam: Positive: Alert, Cooperative, No Acute Distress Eye Exam: Positive: PERRLA, Conjunctiva & lids normal, EOMI; Negative: Sclera icteric, Ptosis ENT Exam: Positive: Atraumatic, Mucous membr. moist/pink, Pharynx Normal, Tongue Midline, Nares Patent; Negative: Pharyngeal Edema Neck Exam: Positive: Supple, +2 carotid pulse wo bruit; Negative: JVD, thyromegaly, Lymphadenopathy Chest Exam: Positive: Clear to auscultation, Normal air movement; Negative: Rales, Rhonchi, Wheezing, Diminished Heart Exam: Positive: Rate Normal, Bradycardic, Regular Rhythm, Normal S1, Normal S2; Negative: Gallops, Murmurs, Rubs Telemetry: Positive: Bradycardia Abdomen Exam: Positive: BS Hypoactive, Soft, Tenderness (lower quadrants); Negative: Hepatospenomegaly, Mass, Hernia Extremity Exam: Negative: Clubbing, Cyanosis, Edema, Normal pulses (bradycardia), Tenderness, Swelling Skin Exam: Positive: Other skin issue (chronic venous stasis changes); Negative: Rash, Lesion Neuro Exam: Positive: Normal Speech, Cranial Nerves 3-12 NL Psych Exam: Positive: Oriented x 3 LABORATORY DATA, IMAGING STUDIES: REVIEWED, PLS SEE BELOW 1. CT abdomen and pelvis with IV and oral contrast - Findings compatible with sigmoid diverticulitis with segmental thickening of the sigmoid colon, with multiple diverticula in the sigmoid. Streaky inflammatory change and tiny foci o f free air seen in the pericolonic fat. VTE Prophylaxis Ordered?: Yes (TEDs) TIME SPENT ON DISCHARGE: 35MIN Vital Signs/I&Os Vital Signs Date Time Temp Pulse Resp B/P (MAP) Pulse Ox O2 Delivery O2 Flow Rate FiO2 04/11/19 08:57 59 137/71 04/11/19 06:00 97.8 18 98 04/09/19 17:38 Room Air I&O- Last 24 Hours up to 6 AM 04/11/19 06:00 Intake Total 2900 ml Output Total 2050 ml Balance 850 ml Laboratory Data Labs 24H Laboratory Tests 2 04/10/19 17:19: Bedside Glucose (Misc Panel) 94 04/11/19 00:15: Bedside Glucose (Misc Panel) 129H 04/11/19 05:30: Nucleated Red Blood Cells % (auto) 0.0, Anion Gap 7L, Glomerular Filtration Rate > 60.0, Blood Urea Nitrogen 11, Creatinine 1.00, Sodium Level 139, Potassium Level 4.0, Chloride Level 107, Carbon Dioxide Level 25, Calcium Level 8.8 04/11/19 06:03: Bedside Glucose (Misc Panel) 145H 04/11/19 11:26: Bedside Glucose (Misc Panel) 159H CBC/BMP Laboratory Tests 04/11/19 05:30 Red Blood Count 5.15, Mean Corpuscular Volume 89.1, Mean Corpuscular Hemoglobin 30.3, Mean Corpuscular Hemoglobin Concent 34.0, Red Cell Distribution Width 12.2, Calcium Level 8.8 FSBS Laboratory Tests Test 04/10/19 17:19 04/11/19 00:15 04/11/19 06:03 04/11/19 11:26 Range/Units Bedside Glucose (Misc Panel) 94 129 145 159 80-115 MG/DL Discharge Medications Scheduled Amlodipine Besylate (Amlodipine Besylate) 10 Mg Tablet, 10 MG PO DAILY, (Reported) Aspirin (Ecotrin) 81 Mg Tablet.dr, 81 MG PO DAILY, (Reported) Atorvastatin Calcium (Atorvastatin Calcium) 40 Mg Tablet, 40 MG PO DAILY, (Reported) Ciprofloxacin HCl (Ciprofloxacin HCl) 250 Mg Tablet, 250 MG PO BID Esomeprazole Magnesium (Esomeprazole Magnesium Dr) 40 Mg Capsule.dr, 40 MG PO DAILY, (Reported) Metronidazole (Flagyl) 500 Mg Tablet, 500 MG PO Q8H Allergies Coded Allergies: No Known Allergies (Unverified , 03/06/15) CAMILLE VASQUEZ MD Apr 11, 2019 12:22
[2019-04-11 14:00] VITALS: BP 157/75
== END 2019-04-11 16:13 | disposition home or self-care (01) | DRG 392 ==
LOC: M ED 08:21 → M ED INP 14:48 → M MSPAV 17:41 → OBSVTOIN 04-10 10:35
PROVIDERS: ADMIT Internal Medicine Nephrology; ATTEND General Practice
DX: K57.92 Diverticulitis of intestine, part unspecified, without perforation or abscess without bleeding (principal); D62 Acute posthemorrhagic anemia; I10 Essential (primary) hypertension; E11.9 Type 2 diabetes mellitus without complications; K64.8 Other hemorrhoids; E66.9 Obesity, unspecified; G47.33 Obstructive sleep apnea (adult) (pediatric); Z68.37 Body mass index [BMI] 37.0-37.9, adult; E88.81 Metabolic syndrome and other insulin resistance; F17.200 Nicotine dependence, unspecified, uncomplicated; Z79.82 Long term (current) use of aspirin; Z79.899 Other long term (current) drug therapy; K21.9 Gastro-esophageal reflux disease without esophagitis

== ENCOUNTER → 2019-04-20 | Outpatient (REF) | payer OTHER ==
[~2019-04-20] MED LIST changes: +AMLO10TA5 PO; +ATOR40TA75 PO; +CIPR250T3 PO; +ECOT81TA5 PO; +ESOM40CA35 PO; +FLAG500T PO
[2019-04-20 14:12] LABS: ALBUMIN 3.5 GM/DL (3.2-5.2); ALT/SGPT 87 U/L (12-78); BILIRUBIN,TOTAL 0.4 MG/DL (0.2-1.0); BLOOD UREA NITROGEN 23 MG/DL (7-18); CALCIUM LEVEL 9.2 MG/DL (8.8-10.2); CARBON DIOXIDE LEVEL 28 MEQ/L (21-32); CHLORIDE LEVEL 108 MEQ/L (98-107); CREATININE FOR GFR 0.96 MG/DL (0.70-1.30); GLOMERULAR FILTRATION RATE > 60.0 (>49); GLUCOSE, FASTING 128 MG/DL (70-100); POTASSIUM SERUM 5.1 MEQ/L (3.5-5.1); SODIUM LEVEL 142 MEQ/L (136-145); TOTAL PROTEIN 6.5 GM/DL (6.4-8.2)
[2019-04-20 14:36] LABS: MALB URINE SIEMENS < 5.0 MG/L; MAU/CREAT RATIO 6.4 MCG/MG (0.0-30.0)
== END ==
LOC: M LAB REF 13:43
PROVIDERS: ATTEND Physician Assistant
DX: R73.01 Impaired fasting glucose (principal)

== ENCOUNTER → 2019-06-19 | Outpatient (REF) | payer OTHER ==
[~2019-06-19] MED LIST changes: +PROBCAP14 PO
[2019-06-19 13:01] LABS: HEMOGLOBIN A1c 7.1 %
[2019-06-19 13:11] LABS: BLOOD UREA NITROGEN 16 MG/DL (7-18); CALCIUM LEVEL 9.3 MG/DL (8.8-10.2); CARBON DIOXIDE LEVEL 29 MEQ/L (21-32); CHLORIDE LEVEL 104 MEQ/L (98-107); GLOMERULAR FILTRATION RATE > 60.0 (>49); GLUCOSE, FASTING 133 MG/DL (70-100); POTASSIUM SERUM 4.6 MEQ/L (3.5-5.1); SODIUM LEVEL 138 MEQ/L (136-145)
== END ==
LOC: M LABDRWAD 12:22
PROVIDERS: ATTEND Physician Assistant
DX: R73.01 Impaired fasting glucose (principal)

== ENCOUNTER 2019-06-21 06:58 | Day surgery (SDC) | payer OTHER ==
[~2019-06-21] VITALS: Ht 172.7 cm; Wt 106.1 kg
[2019-06-21] MEDS ORDERED: NS 1,000 ML IV ONE (07:45)
[2019-06-21] MEDS ORDERED: LIDOCAINE 2% INJ 100 MG/5 ML SDV (FOR ANES.) As Ordered ONE (08:03)
[2019-06-21] MEDS ORDERED: PROPOFOL 200 MG/20 ML VIAL As Ordered ONE ×2 (08:03→09:06)
--- NOTE | 2019-06-21 08:39 | ROOR ---
Patient Name: Ar Madsen Procedure Date: 06/21/2019 8:17 AM Date of : 1960 Age: 58 Room: [facility] Gender: Male Note Status: Finalized Procedure: Colonoscopy Indications: Suspected diverticulitis Providers: Michael Chavez Jr, MD Referring MD: ESTEBAN Cortez Requesting Provider: Medicines: Propofol per Anesthesia Complications: No immediate complications. Procedure: Pre-Anesthesia Assessment: - Prior to the procedure, a History and Physical was performed, and patient medications and allergies were reviewed. The patient is competent. The risks and benefits of the procedure and the sedation options and risks were discussed with the patient. All questions were answered and informed consent was obtained. Patient identification and proposed procedure were verified by the physician and the nurse in the pre-procedure area and in the procedure room. Mental Status Examination: alert and oriented. Airway Examination: normal oropharyngeal airway and neck mobility. Respiratory Examination: clear to auscultation. CV Examination: normal. ASA Grade Assessment: II - A patient with mild systemic disease. After reviewing the risks and benefits, the patient was deemed in satisfactory condition to undergo the procedure. The anesthesia plan was to use moderate sedation / analgesia (conscious sedation). Immediately prior to administration of medications, the patient was re-assessed for adequacy to receive sedatives. The heart rate, respiratory rate, oxygen saturations, blood pressure, adequacy of pulmonary ventilation, and response to care were monitored throughout the procedure. The physical status of the patient was re-assessed after the procedure. The Colonoscope was introduced through the anus and advanced to the cecum, identified by appendiceal orifice and ileocecal valve. The colonoscopy was performed without difficulty. The patient tolerated the procedure well. The quality of the bowel preparation was adequate. Findings: The recto-sigmoid colon, descending colon, ascending colon, cecum and ileocecal valve appeared normal. Multiple small and large-mouthed diverticula were found in the sigmoid colon. Three polyps were found in the rectum, transverse colon and ascending colon. The polyps were small in size. These polyps were removed with a cold snare. Resection and retrieval were complete. Impression: - The recto-sigmoid colon, descending colon, ascending colon, cecum and ileocecal valve are normal. - Diverticulosis in the sigmoid colon. - Three small polyps in the rectum, in the transverse colon and in the ascending colon, removed with a cold snare. Resected and retrieved. Recommendation: - Repeat colonoscopy in 5 years for surveillance. Michael Chavez MD Michael Chavez Jr, MD 06/21/2019 8:38:53 AM Electronically signed by Michael Chavez Jr, MD Number of Addenda: 0 Note Initiated On: 06/21/2019 8:17 AM Estimated Blood Loss: Estimated blood loss: none.
[2019-06-21 09:08] VITALS: BP 116/72
== END 2019-06-21 09:10 | disposition home or self-care (01) ==
LOC: M OPP 06:58
PROVIDERS: ATTEND Surgery
DX: K62.1 Rectal polyp (principal); D12.3 Benign neoplasm of transverse colon; D12.2 Benign neoplasm of ascending colon; K57.30 Diverticulosis of large intestine without perforation or abscess without bleeding

== ENCOUNTER → 2019-12-19 | Outpatient (REF) | payer OTHER ==
[2019-12-19 13:36] LABS: BLOOD UREA NITROGEN 22 MG/DL (7-18); CALCIUM LEVEL 9.6 MG/DL (8.8-10.2); CARBON DIOXIDE LEVEL 30 MEQ/L (21-32); CHLORIDE LEVEL 109 MEQ/L (98-107); CHOLESTEROL LEVEL 127 MG/DL (<200); CHOLESTEROL RISK RATIO 2.702 (<5); CREATININE FOR GFR 1.03 MG/DL (0.70-1.30); GLOMERULAR FILTRATION RATE > 60.0 (>49); GLUCOSE, FASTING 143 MG/DL (70-100); HDL CHOLESTEROL 47 MG/DL (>40); LDL CHOLESTEROL 66 MG/DL (<100); NON-HDL-C 80 MG/DL; POTASSIUM SERUM 4.6 MEQ/L (3.5-5.1); SODIUM LEVEL 140 MEQ/L (136-145); TRIGLYCERIDES LEVEL 72 MG/DL (<150)
[2019-12-19 13:53] LABS: HEMOGLOBIN A1c 6.4 %
== END ==
LOC: M LABDRWAD 12:49 → M LABDRAW1 12:49
PROVIDERS: ATTEND Physician Assistant
DX: R73.01 Impaired fasting glucose (principal); E78.2 Mixed hyperlipidemia

== ENCOUNTER → 2020-07-22 | Outpatient (REF) | payer OTHER ==
[~2020-07-22] MED LIST changes: -AMLO10TA5 PO; +AMLO1TAB25 PO
[2020-07-22 14:15] LABS: ALBUMIN 3.7 GM/DL (3.2-5.2); ALT/SGPT 37 U/L (12-78); BILIRUBIN,TOTAL 0.7 MG/DL (0.2-1.0); BLOOD UREA NITROGEN 22 MG/DL (7-18); CALCIUM LEVEL 9.3 MG/DL (8.8-10.2); CARBON DIOXIDE LEVEL 28 MEQ/L (21-32); CHLORIDE LEVEL 110 MEQ/L (98-107); CHOLESTEROL LEVEL 122 MG/DL (<200); CHOLESTEROL RISK RATIO 2.392 (<5); CREATININE FOR GFR 0.94 MG/DL (0.70-1.30); GLOMERULAR FILTRATION RATE > 60.0 (>49); GLUCOSE, FASTING 125 MG/DL (70-100); HDL CHOLESTEROL 51 MG/DL (>40); LDL CHOLESTEROL 59 MG/DL (<100); NON-HDL-C 71 MG/DL; POTASSIUM SERUM 4.9 MEQ/L (3.5-5.1); SODIUM LEVEL 142 MEQ/L (136-145); TOTAL PROTEIN 6.5 GM/DL (6.4-8.2); TRIGLYCERIDES LEVEL 62 MG/DL (<150)
[2020-07-22 14:23] LABS: MALB URINE SIEMENS 7.6 MG/L; MAU/CREAT RATIO 5.2 MCG/MG (0.0-30.0)
[2020-07-22 18:10] LABS: HEMOGLOBIN A1c 6.2 %
== END ==
LOC: M LABDRWAD 12:46
PROVIDERS: ATTEND Physician Assistant
DX: E78.2 Mixed hyperlipidemia (principal); R73.01 Impaired fasting glucose

== ENCOUNTER → 2021-02-23 | Outpatient (REF) | payer OTHER ==
[2021-02-23 13:42] LABS: HEMOGLOBIN A1c 6.5 %
[2021-02-23 14:16] LABS: MAU/CREAT RATIO 6.8 MCG/MG (0.0-30.0)
== END ==
LOC: M LABDRWAD 12:13
PROVIDERS: ATTEND Nurse Practitioner Family
DX: E11.9 Type 2 diabetes mellitus without complications (principal)

== ENCOUNTER → 2021-08-25 | Outpatient (REF) | payer OTHER ==
[2021-08-25 15:50] LABS: ALBUMIN 3.7 GM/DL (3.2-5.2); ALT/SGPT 44 U/L (12-78); BILIRUBIN,TOTAL 0.6 MG/DL (0.2-1.0); BLOOD UREA NITROGEN 20 MG/DL (7-18); CALCIUM LEVEL 9.3 MG/DL (8.8-10.2); CARBON DIOXIDE LEVEL 28 MEQ/L (21-32); CHLORIDE LEVEL 109 MEQ/L (98-107); CHOLESTEROL LEVEL 132 MG/DL (<200); CHOLESTEROL RISK RATIO 2.869 (<5); CREATININE FOR GFR 0.92 MG/DL (0.70-1.30); GLOMERULAR FILTRATION RATE > 60.0 (>49); GLUCOSE, FASTING 129 MG/DL (70-100); HDL CHOLESTEROL 46 MG/DL (>40); LDL CHOLESTEROL 69 MG/DL (<100); NON-HDL-C 86 MG/DL; POTASSIUM SERUM 4.7 MEQ/L (3.5-5.1); SODIUM LEVEL 141 MEQ/L (136-145); TOTAL PROTEIN 6.6 GM/DL (6.4-8.2); TRIGLYCERIDES LEVEL 84 MG/DL (<150)
[2021-08-25 16:28] LABS: HEMOGLOBIN A1c 6.2 %
== END ==
LOC: M LABDRWAD 12:38
PROVIDERS: ATTEND Nurse Practitioner Family
DX: E11.9 Type 2 diabetes mellitus without complications (principal); E78.2 Mixed hyperlipidemia; Z80.42 Family history of malignant neoplasm of prostate
CPT/HCPCS: 36415; 80053; 80061; 83036; G0103

== ENCOUNTER → 2022-05-04 | Outpatient (REF) | payer OTHER | LOC: M SFHCDERM 12:34 | PROVIDERS: ATTEND Nurse Practitioner Family | DX: D48.5 Neoplasm of uncertain behavior of skin (principal) ==

== ENCOUNTER 2022-06-17 19:24 | Emergency (ER) | payer OTHER ==
[~2022-06-17] VITALS: Ht 170.2 cm; Wt 108.2 kg
[2022-06-17] MEDS ORDERED: LIDOCAINE 1% MDV 20ML VIAL SC ONE (21:35)
[2022-06-17] MEDS ORDERED: ACETAMINOPHEN 325 MG TAB PO ONE (22:05)
[2022-06-17] MEDS ORDERED: CEPHALEXIN 500 MG CAP PO ONE (23:00)
[2022-06-17] MEDS ORDERED: BOOSTRIX/ADACEL VACCINE (DIPHTH/PERTUSS/ACELL/TETANUS) 0.5ML SYR IM ONE (23:00)
[2022-06-17] MEDS ORDERED: CEPH500C PO (23:04)
[2022-06-17 23:11] VITALS: BP 174/89
== END 2022-06-17 23:15 | disposition home or self-care (01) ==
LOC: M ED 19:24
DX: S61.412A Laceration without foreign body of left hand, initial encounter (principal); W22.8XXA Striking against or struck by other objects, initial encounter; I10 Essential (primary) hypertension; K57.30 Diverticulosis of large intestine without perforation or abscess without bleeding; Z23 Encounter for immunization

== ENCOUNTER → 2022-08-26 | Outpatient (CLI) | payer OTHER ==
[~2022-08-26] MED LIST changes: +CEPH500C PO
[2022-08-26 14:36] LABS: ALT/SGPT 41 U/L (12-78); BLOOD UREA NITROGEN 20 MG/DL (7-18); CALCIUM LEVEL 9.5 MG/DL (8.8-10.2); CARBON DIOXIDE LEVEL 28 MEQ/L (21-32); CHLORIDE LEVEL 104 MEQ/L (98-107); CREATININE FOR GFR 1.02 MG/DL (0.70-1.30); GLOMERULAR FILTRATION RATE > 60.0 (>49); GLUCOSE, FASTING 184 MG/DL (70-100); POTASSIUM SERUM 4.5 MEQ/L (3.5-5.1); SODIUM LEVEL 136 MEQ/L (136-145)
[2022-08-26 14:37] LABS: ALBUMIN 3.6 GM/DL (3.2-5.2); BILIRUBIN,TOTAL 0.3 MG/DL (0.2-1.0); CHOLESTEROL LEVEL 162 MG/DL (<200); CHOLESTEROL RISK RATIO 4.153 (<5); HDL CHOLESTEROL 39 MG/DL (>40); LDL CHOLESTEROL 88 MG/DL (<100); NON-HDL-C 123 MG/DL; TOTAL PROTEIN 6.6 GM/DL (6.4-8.2); TRIGLYCERIDES LEVEL 177 MG/DL (<150)
[2022-08-26 14:57] LABS: MALB URINE SIEMENS 7.5 MG/L; MAU/CREAT RATIO 6.8 MCG/MG (0.0-30.0)
[2022-08-26 16:06] LABS: HEMOGLOBIN A1c 7.8 %
== END ==
LOC: M LABDRWAD 08:20
PROVIDERS: ATTEND Nurse Practitioner Family
DX: E78.2 Mixed hyperlipidemia (principal); E11.9 Type 2 diabetes mellitus without complications; I10 Essential (primary) hypertension

== ENCOUNTER → 2023-02-24 | Outpatient (REF) | payer OTHER ==
[2023-02-24 15:31] LABS: HEMOGLOBIN A1c 8.4 % (4.0-6.0)
== END ==
LOC: M LABDRWAD 12:51
PROVIDERS: ATTEND Nurse Practitioner Family
DX: E11.9 Type 2 diabetes mellitus without complications (principal); Z80.42 Family history of malignant neoplasm of prostate
CPT/HCPCS: 36415; 83036; G0103

== ENCOUNTER → 2023-03-16 | Outpatient (CLI) | payer OTHER | LOC: M RAD 09:17 | PROVIDERS: ATTEND Nurse Practitioner Family | DX: Z87.891 Personal history of nicotine dependence (principal) ==

== ENCOUNTER → 2024-02-17 | Outpatient (REF) | payer OTHER ==
[2024-02-17 13:50] LABS: HEMOGLOBIN A1c 7.1 % (4.0-6.0)
== END ==
LOC: M LABDRWAD 12:18
PROVIDERS: ATTEND Nurse Practitioner Family
DX: E11.9 Type 2 diabetes mellitus without complications (principal); Z80.42 Family history of malignant neoplasm of prostate
CPT/HCPCS: 36415; 83036; G0103

== ENCOUNTER → 2024-02-21 | Outpatient (REF) | payer OTHER, MEDICARE ==
[2024-02-21 18:55] LABS: CREATININE, URINE 75.2 MG/DL; MAU/CREAT RATIO 5.3 MCG/MG (0.0-30.0)
== END ==
LOC: M LAB REF 17:01
PROVIDERS: ATTEND Nurse Practitioner Family
DX: E11.9 Type 2 diabetes mellitus without complications (principal)

== ENCOUNTER → 2024-04-25 | Outpatient (CLI) | payer MEDICARE, OTHER | LOC: M RAD 10:36 | PROVIDERS: ATTEND Nurse Practitioner Family | DX: Z12.2 Encounter for screening for malignant neoplasm of respiratory organs (principal); F17.210 Nicotine dependence, cigarettes, uncomplicated ==

== ENCOUNTER 2024-06-14 08:06 | Day surgery (SDC) | payer MEDICARE, OTHER ==
[~2024-06-14] VITALS: Ht 172.7 cm; Wt 104.1 kg
[~2024-06-14 08:06] MED LIST changes: +METF10004 PO
[2024-06-14] MEDS: NS 1,000 ML IV ONE (08:40)
[2024-06-14] MEDS ORDERED: propofoL 200 MG/20 ML VIAL As Ordered ONE (09:15)
[2024-06-14 09:34] VITALS: TEMP 97.2
[2024-06-14 09:51] VITALS: BP 128/71; O2SAT 96
== END 2024-06-14 09:56 | disposition home or self-care (01) ==
LOC: M OPP 08:06
PROVIDERS: ATTEND Surgery
DX: Z12.11 Encounter for screening for malignant neoplasm of colon (principal); Z86.010 Personal history of colon polyps; D12.6 Benign neoplasm of colon, unspecified; K57.30 Diverticulosis of large intestine without perforation or abscess without bleeding; E11.9 Type 2 diabetes mellitus without complications; G47.30 Sleep apnea, unspecified; Z99.89 Dependence on other enabling machines and devices; I10 Essential (primary) hypertension; F17.290 Nicotine dependence, other tobacco product, uncomplicated; Z79.02 Long term (current) use of antithrombotics/antiplatelets; Z79.82 Long term (current) use of aspirin; Z79.84 Long term (current) use of oral hypoglycemic drugs; Z79.899 Other long term (current) drug therapy

== ENCOUNTER → 2024-08-21 | Outpatient (REF) | payer MEDICARE, OTHER ==
[2024-08-21 14:00] LABS: HEMOGLOBIN A1c 7.2 % (4.0-6.0)
[2024-08-21 14:06] LABS: ALBUMIN 3.7 G/DL (3.2-5.2); ALKALINE PHOSPHATASE 75 U/L (46-116); ALT/SGPT 36 U/L (7.0-40); AST/SGOT 14 U/L (<34); BILIRUBIN,TOTAL 0.3 MG/DL (0.3-1.2); BLOOD UREA NITROGEN 22 MG/DL (9-23); CALCIUM LEVEL 9.7 MG/DL (8.3-10.6); CARBON DIOXIDE LEVEL 27 MMOL/L (20-31); CHLORIDE LEVEL 107 MMOL/L (98-107); CHOLESTEROL LEVEL 113 MG/DL (<200); CHOLESTEROL RISK RATIO 3.03 (<5); GLOMERULAR FILTRATION RATE > 60.0 (>49); GLUCOSE, FASTING 186 MG/DL (74-106); HDL CHOLESTEROL 37.2 MG/DL (>40); NON-HDL-C 75.8 MG/DL; POTASSIUM SERUM 4.8 MMOL/L (3.5-5.1); SODIUM LEVEL 137 MMOL/L (136-145); TOTAL PROTEIN 6.8 G/DL (5.7-8.2); TRIGLYCERIDES LEVEL 134 MG/DL (<150)
[2024-08-21 16:20] LABS: CREATININE, URINE 98.8 MG/DL; MALB URINE SIEMENS < 3.0 MG/L
== END ==
LOC: M LABDRWAD 12:47
PROVIDERS: ATTEND Nurse Practitioner Family
DX: E11.9 Type 2 diabetes mellitus without complications (principal); I10 Essential (primary) hypertension; E78.2 Mixed hyperlipidemia

== ENCOUNTER → 2025-03-01 | Outpatient (REF) | payer MEDICARE, OTHER ==
[2025-03-01 14:10] LABS: BLOOD UREA NITROGEN 22 MG/DL (9-23); CALCIUM LEVEL 9.6 MG/DL (8.3-10.6); CARBON DIOXIDE LEVEL 26 MMOL/L (20-31); CHLORIDE LEVEL 109 MMOL/L (98-107); CREATININE FOR GFR 0.85 MG/DL (0.70-1.30); GLOMERULAR FILTRATION RATE > 90.0 (>49); GLUCOSE, FASTING 170 MG/DL (74-106); POTASSIUM SERUM 4.4 MMOL/L (3.5-5.1); SODIUM LEVEL 141 MMOL/L (136-145)
[2025-03-01 14:32] LABS: HEMOGLOBIN A1c 8.5 % (4.0-6.0)
== END ==
LOC: M LABWUC 13:18
PROVIDERS: ATTEND Nurse Practitioner Family
DX: E11.9 Type 2 diabetes mellitus without complications (principal); Z80.42 Family history of malignant neoplasm of prostate; Z12.5 Encounter for screening for malignant neoplasm of prostate
CPT/HCPCS: 36415; 80048; 83036; G0103

== ENCOUNTER → 2025-06-03 | Outpatient (CLI) | payer MEDICARE, OTHER ==
[2025-06-03 13:54] LABS: ESTIMATED AVERAGE GLUCOSE 183.0 MG/DL (60-110)
== END ==
LOC: M LABDRWAD 07:45
PROVIDERS: ATTEND Nurse Practitioner Family
DX: E11.9 Type 2 diabetes mellitus without complications (principal)

== ENCOUNTER → 2025-09-03 | Outpatient (REF) | payer MEDICARE, OTHER ==
[2025-09-03 13:46] LABS: CALCIUM LEVEL 10.1 MG/DL (8.3-10.6); CARBON DIOXIDE LEVEL 24 MMOL/L (20-31); CHLORIDE LEVEL 105 MMOL/L (98-107); CREATININE FOR GFR 0.93 MG/DL (0.70-1.30); GLOMERULAR FILTRATION RATE > 90.0 (>49); POTASSIUM SERUM 4.5 MMOL/L (3.5-5.1); SODIUM LEVEL 140 MMOL/L (136-145)
[2025-09-03 14:11] LABS: ESTIMATED AVERAGE GLUCOSE 154.0 MG/DL (60-110)
== END ==
LOC: M LABDRWAD 12:55
PROVIDERS: ATTEND Nurse Practitioner Family
DX: E11.9 Type 2 diabetes mellitus without complications (principal)